=== PATIENT | female | born 1980 | race Caucasian/White ===

== ENCOUNTER 2019-02-14 20:41 | Emergency (ER) | payer SELFPAY ==
[2019-02-14 21:12] VITALS: BP 156/90; PULSE 100; TEMP 99.2; BMI 40.7
--- NOTE | 2019-02-14 23:33 | PDOC ---
Documentation entered by Twyla Norwood SCRIBE, acting as scribe for Sharon Lambert MD. Sharon Lambert MD: This documentation has been prepared by the Enma mckeon Adrianna, SCRIBE, under my direction and personally reviewed by me in its entirety. I confirm that the documentation accurately reflects all work, treatment, procedures, and medical decision making performed by me. History of Present Illness - General Chief Complaint: Pain, Acute Stated Complaint: WOUND PAIN Time Seen by Provider: 02/14/19 20:44 - History of Present Illness Initial Comments: The patient is a 38 year old female, with a significant PMH of ITP and osteomyelitis, who presents to the ED for evaluation of sacral pain. Patient had a pilonidal cyst, and had it removed. The incision site was unable to be properly close after surgery, and consequently resulted in 6 revision surgeries. In December, patient was found to have osteomyelitis. She was admitted, given a PICC line and given antibiotics. Upon discharge, patient was given doxy and flagyl and her osteomyelitis was gone on MRI (but there was fluid visualized). Patient complains of continual sacral pain since the surgery , which she has been able to manage with Tylenol. Yesterday, her pain became progressively worse and she did not find any relief with taking tyelnol. She has an appointment with a plastic surgeon in 2 days for a skin graft at the surgical site. Denies any fever, chills, chest pain, SOB, nausea, vomit, diarrhea. Allergies: Sulfa Surgical History: Splenectomy, pilonidal cyst removal, cholecystectomy, c- sections x3 Social History: Current everyday smoker (2ppd). Social EtOH use. No illicit drug use PCP: NOS Past History - Past Medical History Allergies/Adverse Reactions: Allergies Allergy/AdvReac Type Severity Reaction Status Date / Time Sulfa (Sulfonamide Allergy Verified 02/14/19 20:44 Antibiotics) Home Medications: Ambulatory Orders Doxycycline Monohydrate 02/14/19 Flagyl 02/14/19 Oxycodone HCl/Acetaminophen [Percocet 5-325 mg Tablet] 1 - 2 tab PO Q6H PRN #12 tab MDD 4 tabs 02/14/19 Anemia: Yes (ITP) COPD: No Other medical history: OSTEOMYLITIS - Surgical History Abdominal Surgery: Yes (SPLENECTOMY) - Psycho Social/Smoking Cessation Hx Smoking History: Current every day smoker Number of Cigarettes Smoked Daily: 2 Information on smoking cessation initiated: Yes Review of Systems - Review of Systems Comments:: GENERAL/CONSTITUTIONAL: No fever or chills. No weakness. HEAD, EYES, EARS, NOSE AND THROAT: No change in vision. No ear pain or discharge. No sore throat. CARDIOVASCULAR: No chest pain or shortness of breath. RESPIRATORY: No cough, wheezing, or hemoptysis. GASTROINTESTINAL: No nausea, vomiting, diarrhea or constipation. GENITOURINARY: No dysuria, frequency, or change in urination. MUSCULOSKELETAL: +Sacral pain at surgical site. No joint or muscle swelling. No neck or back pain. SKIN: No rash NEUROLOGIC: No headache, vertigo, loss of consciousness, or change in strength/ sensation. ENDOCRINE: No increased thirst. No abnormal weight change. HEMATOLOGIC/LYMPHATIC: No anemia, easy bleeding, or history of blood clots. ALLERGIC/IMMUNOLOGIC: No hives or skin allergy. *Physical Exam - Vital Signs Last Vital Signs Temp Pulse Resp BP Pulse Ox 99.2 F 100 H 18 156/90 100 02/14/19 20:46 02/14/19 20:46 02/14/19 20:46 02/14/19 20:46 02/14/19 20:46 - Physical Exam GENERAL: Awake, alert, and fully oriented, in no acute distress RECTAL: +3 cm x 4cm moderately indurated and mildly erythematous areas of the upper left medial buttock with irregularly shaped 1 cm x 2cm granulating wound located centrally. No discharge, no fluctuance, no increased warmth of the area. NEUROLOGICAL: Moves all extremities. Normal speech, normal gait SKIN: Warm, Dry, normal turgor, no rashes noted. Medical Decision Making - Medical Decision Making As noted above, this 38-year-old woman who had a very complicated 4-month course after pilonidal cyst surgery in October,, scheduled for plastic surgery reconstructive procedure on February 16 presents with progressive pain in the area of the chronic wound. She is scheduled to have skin grafts placed in the area of the wound during the procedure. As noted above, recent MRI revealed fluid in the wound but no evidence of osteomyelitis. Patient relates continuing drainage from the area but no new problems with edema, change in quality of the drainage or fever/chills. Since she has a history of ITP, she can only take Tylenol for pain. In the last few days, she has had increasing pain without significant relief from Tylenol. Exam as noted: No evidence of significant cellulitis or abscess in the area of the chronic wound. Although she has low-grade temp (99 F orally) on presentation, she has no other systemic signs of infection. [facility] prescription monitoring service reveals no evidence of opioid prescription for this patient since 10/23/2018 (ref #[id number] ) Limited (#12) prescription for Percocet 5/325 1-2 tabs p.o. every 6 as needed sent to her pharmacy. Patient will be given 1 tablet of Percocet 5/325 now ( patient will be driven home by her ) Patient should return to the ER if she has progressive pain, swelling, change in drainage from the wound or develops fever/chills. Discharge - Discharge Information Problems reviewed: Yes Clinical Impression/Diagnosis: Wound pain Condition: Stable Disposition: HOME - Additional Discharge Information Prescriptions: Oxycodone HCl/Acetaminophen [Percocet 5-325 mg Tablet] 1 - 2 tab PO Q6H PRN #12 tab MDD 4 tabs PRN Reason: Severe Pain - Follow up/Referral Referrals: ON STAFF,NOT [Primary Care Provider] - - Patient Discharge Instructions Patient Printed Discharge Instructions: DI for Prescription Opioid Use Additional Instructions: Percocet 1-2 tabs every 6 hours as needed for severe pain Tylenol as needed for mild to moderate pain followup for reconstructive surgery on Saturday, Feb 16 as scheduled return to ER if you have persistent, severe pain - Post Discharge Activity
== END 2019-02-14 22:07 | disposition home or self-care (01) ==
LOC: FER 20:41
DX: G89.18 Other acute postprocedural pain (principal)
CPT/HCPCS: 99281-25